=== PATIENT | female | born 1945 | race Hispanic/Latino ===

== ENCOUNTER 2020-08-05 09:51 | Outpatient (CLI) | payer MEDICARE ==
[2020-08-05 20:25] LABS: SARS-CoV-2 PCR by NAA Not Detected (NotDetected)
== END 2020-08-05 09:52 | disposition home or self-care (01) ==
LOC: CSHLAB 09:51
PROVIDERS: ATTEND Internal Medicine Critical Care Medicine
DX: Z20.822 Contact with and (suspected) exposure to COVID-19 (principal); D86.9 Sarcoidosis, unspecified
CPT/HCPCS: 87635; U0003; U0005

== ENCOUNTER 2020-08-10 09:29 | Outpatient (CLI) | payer MEDICARE | END 2020-08-10 09:30 | disposition home or self-care (01) | LOC: CSHCP 09:29 | PROVIDERS: ATTEND Internal Medicine Critical Care Medicine | DX: D86.9 Sarcoidosis, unspecified (principal) | CPT/HCPCS: 71046; 94060; 94726; 94729; 94760 ==